=== PATIENT | female | born 1995 | race Caucasian/White ===

== ENCOUNTER → 2017-06-07 | Outpatient (CLI) | payer MEDICAID | LOC: FIMAGING 08:45 | PROVIDERS: ATTEND Midwife | DX: O99.321 Drug use complicating pregnancy, first trimester (principal); O99.333 Smoking (tobacco) complicating pregnancy, third trimester; O41.03X1 Oligohydramnios, third trimester, fetus 1; O99.280 Endocrine, nutritional and metabolic diseases complicating pregnancy, unspecified trimester; Z3A.37 37 weeks gestation of pregnancy ==